=== PATIENT | female | born 1985 | race Caucasian/White ===

== ENCOUNTER 2020-08-18 09:03 | Emergency (ER) | payer OTHER, SELFPAY ==
[2020-08-18 09:14] VITALS: BP 126/73; PULSE 76; RESP 16; TEMP 36.8; O2SAT 100; BMI 25.8
--- NOTE | 2020-08-18 09:16 | XR_ITS ---
WS: [id number] PORTABLE CHEST HISTORY: dyspnea/cough COMPARISON: 11/22/2011 Lungs are clear and well expanded. No pleural effusion or pneumothorax. Cardiac size: Normal. Mediastinum/Aorta: Normal mediastinum. No osseous abnormality seen. XR/XR chest 1V portable [id number] IMPRESSION: Unremarkable portable chest.
--- NOTE | 2020-08-18 09:16 | ECG_ITS ---
[facility] Test Date: 2020-08-18 Pat Name: Prachi Goodman Department: Room: Gender: Female Regulatory Compliance Officer: : 1985 Requested By: Pedro Neal Order Number: [id number] Loulou MD: Ventura Castillo M.D. Measurements Intervals [place] Rate: 76 P: 38 HI: 132 QRS: 45 QRSD: 78 T: 31 QT: 391 QTc: 442 Interpretive Statements SINUS RHYTHM No previous ECG available for comparison Electronically Signed On 08-18-2020 18:35:55 CAREER SERVICES MANAGER by Ventura Castillo M.D. [id number]
--- NOTE | 2020-08-18 09:17 | ED_ITS ---
HPI - Allergic Reaction General: Chief complaint: Allergic Reaction Stated complaint: Allergic Reaction to Covid Vaccine Time Seen by Provider: 08/18/20 09:15 History of Present Illness: HPI narrative: 35 yo female resents to the emergency room after receiving a a COVID-19 vaccination this morning. About 1/2-hour after administration she said she felt some numbness sensation in her mouth and her lips. She does not think she ever had any swelling of those areas. She has not had any difficulty breathing. She has a remote history of some reactive airways but has not been using any inhalers or had any ongoing issues recently she has some mild environmental allergies. On arrival here she is not had any respiratory distress she did return back to the vaccination clinic after she started having the facial numbness and was given Benadryl. She is not taken anything else since then. Onset (ago): minute(s) Exposure: other ([place] COVID-19 vaccination) Associated symptoms: Reports other (Numbness tingling around the mouth); Deny abdominal pain, difficulty breathing, dysphagia, dizziness, facial swelling, hoarseness, itching, lip swelling, nausea, rash, tongue swelling or vomiting Severity: mild Treatment prior to arrival: benadryl Previous Allergic Reaction History: none Review of Systems Const: Denies: fever(s), chills, body aches, change in appetite, fatigue or malaise ENMT: Denies: hoarseness Card: Denies: chest pain, edema, dyspnea on exertion or orthopnea Resp: Denies: dyspnea, productive cough or non-productive cough GI: Denies: abdominal pain, nausea, vomiting or dysphagia : Denies: flank pain, difficulty voiding, dysuria, urinary frequency or urinary urgency Skin/Breast: Denies: rash or pruritus Neuro: Denies: dizziness All/Imm: Denies: tongue swelling or facial swelling Physical Exam Const: COMMON NORMALS: no acute distress GENERAL APPEARANCE: cooperative and comfortable ORIENTATION/CONSCIOUSNESS: Yes awake, Yes oriented to person, Yes oriented to place and Yes oriented to time HENMT: COMMON NORMALS: normocephalic, atraumatic, hearing grossly normal bilaterally, external ears normal, EAC's normal, TM's normal bilaterally, Normal nasal mucous membranes and turbinates present, moist oral mucous membranes and oropharynx normal HEAD & SCALP: normocephalic and atraumatic NOSE: Normal nasal mucous membranes and turbinates present EXTERNAL EAR: Yes external ears normal EXTERNAL AUDITORY CANAL: EAC's normal TYMPANIC MEMBRANE: TM's normal bilaterally Eye: COMMON NORMALS: Equal, round and reactive pupils present, EOMs intact bilaterally, conjunctivae normal and no scleral icterus CONJUNCTIVA: Yes conjunctivae normal PUPIL: Yes Equal, round and reactive pupils present Neck/C-Spine: COMMON NORMALS: no JVD Resp: COMMON NORMALS: normal respiratory effort, No retractions, No use of accessory muscles and clear to auscultation bilaterally AUSCULTATION: clear to auscultation bilaterally Cardio: COMMON NORMALS: no JVD, regular rate, regular rhythm and No murmurs present (Cardio) RATE: regular rate RHYTHM: regular rhythm GI: COMMON NORMALS: Soft to palpation and No hepatosplenomegaly present AUSCULTATION: Yes normoactive bowel sounds PALPATION: Yes Soft to palpation, No Tenderness to palpation present (GI), No Guarding due to palpation present (GI) and Yes No hepatosplenomegaly present Extremity: COMMON NORMALS: normal to inspection, capillary refill normal, no clubbing, cyanosis or edema, no calf tenderness and no pedal edema Neuro: SENSORIUM/ORIENTATION: Yes oriented to person, Yes oriented to place and Yes oriented to time Skin: COMMON NORMALS: no rashes or lesions noted GENERAL SKIN EXAM: no rashes or lesions noted Course Vital Signs: Vital signs: Vital Signs Temperature 98.3 F 08/18/20 09:14 Pulse Rate 68 08/18/20 11:36 Respiratory Rate 18 08/18/20 11:36 Blood Pressure 127/77 08/18/20 11:36 Pulse Oximetry 100 08/18/20 11:36 MDM - Allergic Reaction MDM Narrative: Medical decision making narrative: Patient reassessed throughout her stay. Per protocol she was monitored for 4 hours after presentation she had no further adverse events and her lungs remained clear the entire time. On repeat exam at time of discharge there is no evidence of facial or oropharyngeal swelling or edema. She has no hives or rash or difficulty breathing. We will go ahead and discharge her home. Discharge Plan Discharge Patient Disposition: Home Clinical Impression: Adverse reaction to drug Condition: Stable Prescriptions: No Action Zyrtec 10 mg Tablet 10 mg PO DAILY PRN (Reason: Allergy Symptoms) RF: 0 ibuprofen 200 mg Tablet 200 - 400 mg PO PRN RF: 0 Discharge Orders: Discharge ED (Routine); Ordered 08/18/20 Ordered By: Pedro Esteban Referrals: Norma Vargas MD [Primary Care Provider] - Activity Restrictions/Additional Instructions: Return to the ER if you have further problems. Coding Level of Care Code ED Linter Drier Operator for Chg Fwd Exam Comprehensive
[2020-08-18 09:45] VITALS: BP 126/73; PULSE 78; RESP 16; O2SAT 99
[2020-08-18 11:36] VITALS: BP 127/77; PULSE 68; RESP 18; O2SAT 100
[2020-08-18 13:41] VITALS: BP 127/77; PULSE 94; RESP 18; O2SAT 99
== END 2020-08-18 13:45 | disposition home or self-care (01) ==
PROVIDERS: Emergency Provider Family Medicine; PCP Family Medicine
DX: T88.1XXA Other complications following immunization, not elsewhere classified, initial encounter (principal)
CPT/HCPCS: 12345; 71045; 93005; 99281; 99283

== ENCOUNTER → 2020-09-28 08:20 | Outpatient (BNVA) | payer OTHER, SELFPAY | PROVIDERS: PCP Family Medicine; Visit Provider Obstetrics & Gynecology | DX: Z12.4 Encounter for screening for malignant neoplasm of cervix (principal) | CPT/HCPCS: 88175 ==